=== PATIENT | female | born 1970 | race Caucasian/White ===

== ENCOUNTER 2017-11-19 12:55 | Outpatient (CLI) | payer BC ==
[2017-11-19] MEDS ORDERED: Iopamidol 370 76% 100 ML VIAL ONE (12:57)
== END 2017-11-19 12:56 | disposition home or self-care (01) ==
LOC: BICCT 12:55
PROVIDERS: ATTEND Internal Medicine
DX: K74.60 Unspecified cirrhosis of liver (principal); K75.81 Nonalcoholic steatohepatitis (NASH); J90 Pleural effusion, not elsewhere classified; R93.3 Abnormal findings on diagnostic imaging of other parts of digestive tract; R18.8 Other ascites
CPT/HCPCS: 74170

== ENCOUNTER 2017-12-12 08:09 | Outpatient (CLI) | payer BC ==
--- NOTE | 2017-12-12 12:01 | MRI ---
MRI ABDOMEN WITH AND WITHOUT IV CONTRAST: Date: 12/12/17 HISTORY: Cirrhosis of the liver, hepatic encephalopathy, abnormal CT scan of 11/19/17. FINDINGS: Correlation is made with CT scan of abdomen dated 11/19/17. There is nodularity of the liver, consistent with cirrhosis. The focal hypodensity in the lateral seg ment of the left lobe of the liver noted on the CT scan demonstrates signal dropout on the out-of-pha se images and no definite evidence of mass. This likely represents focal fat. No enhancing liver mass or abnormal biliary ductal dilatation is seen. The patient is post cholecystectomy. The spleen is enlarged, measuring 16.3 cm in AP dimension. There is a 2.8 cm left renal cyst. The adrenal glands and right kidney are normal. There is fatty replacem ent of the pancreas. No ascites seen. Right pleural effusion is again noted. IMPRESSION: 1. Cirrhosis of the liver with focal area of probable fatty infiltration in the lateral segment of t he left lobe. 6 month follow up is recommended. 2. Splenomegaly. 3. Left renal cyst. 4. Right pleural effusion. POS: OFF
[2017-12-12] MEDS ORDERED: Gadobenate Dimeglumine 529 MG/1 ML (20ML VIAL) ONE (15:16)
== END 2017-12-12 08:10 | disposition home or self-care (01) ==
LOC: TBSIIMAG 08:09
PROVIDERS: ATTEND Internal Medicine
DX: K74.60 Unspecified cirrhosis of liver (principal); K72.90 Hepatic failure, unspecified without coma; R18.8 Other ascites; J90 Pleural effusion, not elsewhere classified; R93.3 Abnormal findings on diagnostic imaging of other parts of digestive tract; R16.1 Splenomegaly, not elsewhere classified; N28.1 Cyst of kidney, acquired
CPT/HCPCS: 74183; A9579